=== PATIENT | male | born 2000 | race Caucasian/White ===

== ENCOUNTER 2025-08-05 01:37 | Emergency (ER) | payer BC, SELFPAY ==
[2025-08-05 01:49] VITALS: BP 119/70; PULSE 104; RESP 16; TEMP 37.1; O2SAT 95; BMI 22.3
[2025-08-05] MEDS: NICOTINE 21 MG PATCH TOP (02:24)
--- NOTE | 2025-08-05 02:40 | PC.NURSE ---
Lab into draw blood, pt refusing lab draw, stating last time he had his blood drawn he felt loss of control for about a year. states he doesn't want to have that feeling again
--- NOTE | 2025-08-05 02:50 | ED.PSYCH ---
HPI - Psych <Jean Marie Aguilar MD - Last Filed: 08/05/25 16:27> General Chief Complaint: Psychiatric Symptoms Stated Complaint: SI, Feeling like hurting others Time Seen by Provider: 08/05/25 02:22 Source: patient Mode of arrival: Ambulatory History of Present Illness HPI Narrative: 24-year-old male with history of PTSD, has area psychiatrist and counselor, prior inpatient psychiatric stay [facility] about 1 year ago, intermittently hearing voices, hearing voices again recently, thoughts of hurting himself with no specific plan. He has been treated with prazosin and fluoxetine. His psychiatrist sent a new medication prescription Tuesday that he has not filled, does not recall the name of that new medication. From nursing triage note patient said the voices ?gas slight me constantly? and that ?I do not want to hurt myself with the voices are telling me they are going to kill me. Patient requesting inpatient stabilization services. Related Data Allergies Allergy/AdvReac Type Severity Reaction Status Date / Time No Known Drug Allergies Allergy Verified 08/05/25 01:49 Patient History <Jean Marie Aguilar MD - Last Filed: 08/05/25 16:27> Social History Smoking Status: Current every day smoker Smoking Status: Current every day smoker tobacco type: cigarettes Exam <Jean Marie Aguilar MD - Last Filed: 08/05/25 16:27> Narrative Exam Narrative: GENERAL: Well-developed patient, in mild distress. Cooperative. HEAD: Atraumatic. Normocephalic. EYES: Pupils equal round and reactive. Extraocular motions intact. No scleral icterus. No injection or drainage. ENT: Nose without bleeding, purulent drainage. Throat without erythema, tonsillar hypertrophy or exudate. Airway patent. NECK: Trachea midline. Non tender CARDIOVASCULAR: Regular rate and rhythm without murmurs, gallops, or rubs. RESPIRATORY: Clear to auscultation. Breath sounds equal bilaterally. No wheezes, rales, or rhonchi. GASTROINTESTINAL: Abdomen soft, non-tender, nondistended. EXTREMITIES: No edema or joint tenderness. BACK: Nontender without deformity or crepitance. No flank tenderness. NEURO: AOx3. Motor functions grossly nonfocal. SKIN: No rash or erythema of visible areas Initial Vital Signs Initial Vital Signs: Vital Signs Temperature 98.8 F 08/05/25 01:49 Pulse Rate 104 H 08/05/25 01:49 Respiratory Rate 16 08/05/25 01:49 Blood Pressure 119/70 08/05/25 01:49 Pulse Oximetry 95 08/05/25 01:49 Oxygen Delivery Method Room Air 08/05/25 01:49 <Blossom Norris DO - Last Filed: 08/05/25 16:07> Initial Vital Signs Initial Vital Signs: Vital Signs Temperature 98.8 F 08/05/25 01:49 Pulse Rate 104 H 08/05/25 01:49 Respiratory Rate 16 08/05/25 01:49 Blood Pressure 119/70 08/05/25 01:49 Pulse Oximetry 95 08/05/25 01:49 Oxygen Delivery Method Room Air 08/05/25 01:49 Course <Jean Marie Aguilar MD - Last Filed: 08/05/25 16:27> Orders Ordered: Discontinued Medications Hydroxyzine HCl (Hydroxyzine Hcl 25 Mg Tablet) 50 mg PO NOW ONE Stop: 08/05/25 03:55 Last Admin: 08/05/25 04:01 Dose: 50 mg Documented By: GURINDER Nicotine (Nicotine 21 Mg Patch) 21 mg TOP NOW ONE Stop: 08/05/25 02:14 Last Admin: 08/05/25 02:24 Dose: 21 mg Documented By: GURINDER Vital Signs Vital signs: Vital Signs - 8 hr 08/05/25 10:00 Temperature 98.0 F Pulse Rate 89 Respiratory Rate 17 Blood Pressure 121/67 Pulse Oximetry 99 Oxygen Delivery Method Room Air <Blossom Norris DO - Last Filed: 08/05/25 16:07> Orders Ordered: Discontinued Medications Hydroxyzine HCl (Hydroxyzine Hcl 25 Mg Tablet) 50 mg PO NOW ONE Stop: 08/05/25 03:55 Last Admin: 08/05/25 04:01 Dose: 50 mg Documented By: GURINDER Nicotine (Nicotine 21 Mg Patch) 21 mg TOP NOW ONE Stop: 08/05/25 02:14 Last Admin: 08/05/25 02:24 Dose: 21 mg Documented By: GURINDER Vital Signs Vital signs: Vital Signs - 8 hr 08/05/25 10:00 Temperature 98.0 F Pulse Rate 89 Respiratory Rate 17 Blood Pressure 121/67 Pulse Oximetry 99 Oxygen Delivery Method Room Air MDM - Psych <Jean Marie Aguilar MD - Last Filed: 08/05/25 16:27> Lab Data Labs: Lab Results 08/05/25 08/05/25 Range/Units 02:10 02:35 U Opiates 300ng/mL cut Negative (Negative) Ur Oxycodone Screen Negative (Negative) Urine Methadone Screen Negative (Negative) Ur Barbiturates Screen Negative (Negative) U Tricyclic Antidepress Negative (Negative) Ur Phencyclidine Scrn Negative (Negative) Ur Amphetamines Screen Negative (Negative) U Methamphetamines Scrn Negative (Negative) Ur MDMA Scrn (Ecstasy) Negative (Negative) U Benzodiazepines Scrn Negative (Negative) Urine Cocaine Screen Negative (Negative) U Marijuana (THC) Screen Positive H (Negative) Urine pH TNP Urine Specific [place] TNP Ur Creatinine TNP SARS-CoV-2 (PCR) Negative (Negative) Urine Dip Bedside Urine Glucose Negative Bedside Urine Bilirubin - Negative Bedside Urine Ketone ++ 40 Urine Specific [place] 1.015 Bedside Urine Occult Blood - Negative Bedside Urine pH 7.0 Bedside Urine Protein - Negative Bedside Urine Urobilinogen - Negative Bedside Urine Nitrite - Negative Bedside Urine Leukocytes - Negative Esterase MDM Narrative Medical decision making narrative: 24-year-old male with history of PTSD hearing voices more frequently, most recently on SSRI and prazosin, new medication prescribed Tuesday has not yet been picked up and taken, has psychiatrist and counseling support, feels like he is out of control, hearing voices that are telling him that they will kill him. Screening labs requested. Patient had expressed desire to leave but was encouraged to stay here, had oral dose of hydroxyzine, did give urine specimen, no serum studies obtained thus far. UDS positive for THC otherwise negative, urine dip negative. Serum studies yet to be obtained, had been ordered. 0700, social psychologist consult when available later this morning. Signed out to Dr. Norris. 08/05/25 Dr. Norris: Patient signed out to myself. Patient was seen. Patient did meet with social work after discussion he would like to discharge and follow up in [place] where he lives he will was planning to take Seroquel which he was prescribed but has not started think this is good trace of medication for his symptoms. His plan is to check in [place] for possible inpatient stay if he is not felling improved. He contracts for safety at this time. Does have OT followup in place. <Blossom Norris, DO - Last Filed: 08/05/25 16:07> Lab Data Labs: Lab Results 08/05/25 08/05/25 Range/Units 02:10 02:35 U Opiates 300ng/mL cut Negative (Negative) Ur Oxycodone Screen Negative (Negative) Urine Methadone Screen Negative (Negative) Ur Barbiturates Screen Negative (Negative) U Tricyclic Antidepress Negative (Negative) Ur Phencyclidine Scrn Negative (Negative) Ur Amphetamines Screen Negative (Negative) U Methamphetamines Scrn Negative (Negative) Ur MDMA Scrn (Ecstasy) Negative (Negative) U Benzodiazepines Scrn Negative (Negative) Urine Cocaine Screen Negative (Negative) U Marijuana (THC) Screen Positive H (Negative) Urine pH TNP Urine Specific [place] TNP Ur Creatinine TNP SARS-CoV-2 (PCR) Negative (Negative) Urine Dip Bedside Urine Glucose Negative Bedside Urine Bilirubin - Negative Bedside Urine Ketone ++ 40 Urine Specific [place] 1.015 Bedside Urine Occult Blood - Negative Bedside Urine pH 7.0 Bedside Urine Protein - Negative Bedside Urine Urobilinogen - Negative Bedside Urine Nitrite - Negative Bedside Urine Leukocytes - Negative Esterase MDM Narrative Medical decision making narrative: 24-year-old male with history of PTSD hearing voices more frequently, most recently on SSRI and prazosin, new medication prescribed Tuesday has not yet been picked up and taken, has psychiatrist and counseling support, feels like he is out of control, hearing voices that are telling him that they will kill him. Screening labs requested. Patient had expressed desire to leave but was encouraged to stay here, had oral dose of hydroxyzine, did give urine specimen, no serum studies obtained thus far. UDS positive for THC otherwise negative, you urine dip negative. Serum studies yet to be obtained, had been ordered. 0700, social psychologist consult when available later this morning. Signed out to Dr. Norris. 08/05/25 Dr. Norris: Patient signed out to myself. Patient was seen. Patient did meet with social work after discussion he would like to discharge and follow up in [place] where he lives he will was planning to take Seroquel which he was prescribed but has not started think this is good trace of medication for his symptoms. His plan is to check in [place] for possible inpatient stay if he is not felling improved. He contracts for safety at this time. Does have [facility] followup in place. Discharge Plan Departure Patient Disposition: Home Clinical Impression: Auditory hallucination Activity Restrictions/Additional Instructions: Start the seroquel prescribed by your provider. This may be helpful for your symptoms. This medication can make you feel sleepy. You met with our social media intern today. They have reached out to [facility] to have a follow up. If you're feeling suicidal or having suicidal thoughts, contact the suicide hotline (this is also the number for self referral for services): . Please call 911 or return or go to the closest facility if you are having worsening thoughts, thoughts of harming yourself, if you feel that your unsafe have any other new or concerning changes. Stand Alone Forms: Patient Portal/API
[2025-08-05 03:05] LABS: UR Morphine/Opiate cutoff 300 Negative (Negative); Urine MDMA Negative (Negative); Urine Methamphetamines Negative (Negative); Urine Tetrahydrocannabinol Positive (Negative); Urine Tricyclic Antidepressant Negative (Negative)
[2025-08-05 03:10] LABS: COVID19 -Nasal RAPID Negative (Negative)
--- NOTE | 2025-08-05 04:06 | PC.NURSE ---
Pt becoming increasingly anxious and wanting to leave. Provider in to see patient. Reports pt isn't safe to leave at this time. Changed pt from intermittent observation to 1:1.
--- NOTE | 2025-08-05 04:06 | PC.NURSE ---
pt wanting to check out and go home pt states he does not feel safe, pt was reassured that this was a safe place and he would be kept safe. pt states he just wants to go home he doesn't want to wait until in the morning to see the public health social worker. attempted to explain to pt that he could not check out d/t what he had told the triage nurse, pt stated that he said the voices were telling him to grain picker the gun and hurt himself but he would never do it. explained to pt that we wanted to keep him safe, then explained to pt that legally we had to keep him d/t what he had said. pt continued to state that he could not understand why he could not just leave after having it explained several times to him, pt was also offered medication to help him rest especially since it would be only a few more hours before everyone would be here, he agreed to take the medication and then changed his mind. pt then asked to have it explained to him one more time. pt stated he had checked in before and was able to leave when he wanted, asked pt if that was to a psychiatry facility, he stated yes. so explained to pt that because it was a psychiatry facility they were able to evaluate him and then he could leave but but because we were not we could not evaluate that for him, that would be like him doing surgery. pt stated at that point he understood. explained to pt that we wanted to keep him safe and to get the care he needed, the medication was offered again and an agreement was mad to allow the door to the Bathroom to be ajar with the room door be slightly closed so he could get some rest, warm blankets were given and pt took the medication prescribed.
--- NOTE | 2025-08-05 04:57 | PC.NURSE ---
Attempted a blood draw again. Pt continues to refuse blood draw, stating I don't understand why you need to blood. Explained to patient the reasoning behind blood and patient continued to refuse.
--- NOTE | 2025-08-05 07:58 | PC.NURSE ---
Additional attempt to get blood drawn. Patient declines he states that it gives him a lot of anxiety. He states his plan after leaving here it is to go to his friend's house and call inpatient places. Spoke in length about our ability to assist with placement, patient states he appreciates it but thinks he will do it himself. Provided a list of facilities to patient. Encouraged him to process his options while we wait for breakfast and social work. Patient appreciative.
[2025-08-05 08:15] VITALS: BP 122/71; PULSE 84; RESP 17; TEMP 37.3; O2SAT 97
[2025-08-05 10:00] VITALS: BP 121/67; PULSE 89; RESP 17; TEMP 36.7; O2SAT 99
--- NOTE | 2025-08-05 11:18 | CM.SWNOTE ---
ED YARD COUPLER Assessment Note: YARD COUPLER calls pt friend, Angela, with pt consent. Angela verbalized understanding of plans and states she will be available to accept pt and escort him to obtaining help at a hospital. Requested a list of hospitals [facility] to review with patient, YARD COUPLER provided printed copy. YARD COUPLER calls [facility] in [place] and spoke with Bertram. Bertram confirms that pt is established at their clinic and sees DIANA Maher for psych medication management and CARY Gonsalez for counseling. YARD COUPLER noted plan with [facility] team for continuity of care. YARD COUPLER calls [facility] Care Crisis Line, spoke with Amira. Requested a [facility] follow up call this evening and tomorrow morning to assist pt with following through with safety plan. Provided information to [facility] intake of pt presentation. YARD COUPLER provided pt with [facility] phone number and educated on how to call if symptoms persist. Sandra Ly [facility] YARD COUPLER - Agricultural Consultant Assessment YARD COUPLER - Agricultural Consultant Assessment Start: 08/05/25 09:59 Freq: Status: Discharge Protocol: Document 08/05/25 09:59 MW (Rec: 08/05/25 11:18 MW [id number]) YARD COUPLER/Agricultural Consultant Assessment Time Spent with Patient Start date 08/05/25 Visit Start Time 09:45 End date 08/05/25 Visit End Time 10:00 Total time Care 15 minutes Management spent on patient visit-in minutes Mental Health Screening Include Onset, Duration, Intensity Presenting Problem Patient presented to the ED with suicidal ideation, auditory hallucinations. Patient reported that there were a lot of voices last night. These voices were mainly saying his ex's name repeatedly. Pt reports the voices were not commanding him to do anything, he reports they have diminished since being in the hospital. Patient was initially seeking inpatient treatment or PHP/IOP referral. Precipitating Event( Patient reports experiencing a break up in the last two s) weeks. Patient also reports he was previously prescribed prazosin and fluoxetine then switched to Seroquel this past Tuesday, he was not able to package pick up that Rx yet. Patient Strengths Patient is already established with a clinic outpatient at [facility] in [facility] [phone]. Patient has a supportive friend, Angela, who is willing to assist him with navigating getting assistance. Current Behavioral [place], [place] - ph# [phone]. Patient could not Health Provider(s) remember psychiatrist or MH therapists name . Include Facility, Provider, Ph. # Psych. Hx Mental Patient has a history of PTSD, Major Depression, Health and Chemical Anxiety, and ADD. Patient's Utox was positive for THC. Dependency Family Hx of None reported. Behavioral Abuse Psychiatric [facility] in 04/[facility]24 and was admitted for 2 Hospitalizations ( days, per patient. date(s)/location) Psychosocial Patient is a 24yo male, resident of [facility]. information & Patient lives with his grandfather, his parents still Support Systems live in [place] where he grew up. School/Work Patient is currently unemployed. Legal Concerns Legal Matters - None reported. Outstanding Issues Mental Status Orientation (Person/ AOx3 Place/Time) Stated Mood Numb Affect (Congruent Flat, congruent with mood with Mood?) Thought Content - Auditory: Patient states he has been hearing voices, Specify/Describe none currently commanding but he hears his ex's name Obsessions, repeatedly. Denies visual hallucinations. None assessed Delusions, during meeting. Hallucinations Thought Processes ( Coherent, goal directed Logical-Coherent- Goal Directed- Detailed-Tangential- Circumstantial- Logical-Disorganized -Thought Blocking) Speech (Normal-Slow- Normal, soft Vdazeeb-Oqfuo-Rzaq- Loud-Pressured) Motor (Normal- Normal Kqizacaaz-Rydo-Icifg ) Insight (Good-Fair- Fair Poor/Limited) Judgement (Good-Fair Fair -Poor/Limited) Impulse Control ( Adequate Adequate-Impaired) Memory (Immediate- Impaired Recent-Remote, Impaired-Intact) Concentration ( Intact Intact-Impaired) Attention (Intact- Intact Impaired) Behavior ( Appropriate Appropriate- Inappropriate) Additional Comment Patient is calm and cooperative during assessment. Overnight, patient was voluntary for assistance but declined formal medical work up for clearance for inpatient treatment (blood work) due to anxiety. Risk Assessment Suicidal Ideation ( No Plan) [place]-SUICIDE SEVERITY RATING SCALE 1) Have you wished you were or wished you could go to sleep and not wake up? NO 2) Have you actually had any thoughts of killing yourself? NO 3) Have you been thinking about how you might do this? NO 4) Have you had these thoughts and had some intention of acting on them? NO 5) Have you started to work out or worked out the details of how to kill yourself? Do you intend to carry out this plan? NO 6) Have you ever done anything, started to do anything, or prepared to do anything to end your life? YES If YES, ask: Was this within the past three months? NO Homicidal Ideation ( No Plan) Intervention Intervention Reviewed chart and discussed with ED Provider pt's medical status and discharge needs. ED YARD COUPLER meets with patient. Patient endorses having hallucinations and poor sleep which have exacerbated his feelings of hopelessness and despondance. Patient states he has been in the process of changing his medications but did not get to pick it up yet. ED YARD COUPLER and patient discuss goals of care. Patient contracts for safety, would like to seek help in [place] or somewhere closer to his natural supports. Patient agrees to [facility] referral for follow up this evening and this YARD COUPLER to collaborate with his friend, Angela (ph# [phone]). At this time, it is the opinion of this YARD COUPLER that patient would benefit from inpatient psychiatric hospitalization for crisis stabilization and medication management. Patient is currently not experiencing SI/ HI or acute psychosis and would like to follow up with the prior with friend support in-person or at a hospital closer to supports. YARD COUPLER informs ED provider, Dr. Norris, who indicates agreement. YARD COUPLER informs ALIVIA Mayer. Plan RA Plan Patient to transport self to friend in [place] whom he trusts. The plan is for patient to stabilize with friend who will escort him to an inpatient psychiatric hospital and request admission. YARD COUPLER to make referrals and collaborate with natural supports to establish plans. NENA BoothSW
== END 2025-08-05 10:32 | disposition home or self-care (01) ==
PROVIDERS: Emergency Medicine; Emergency Provider Emergency Medicine
DX: R44.0 Auditory hallucinations (principal)
CPT/HCPCS: 80305; 81003; 87635; 99284; A9270